=== PATIENT | male | born 1945 | race Caucasian/White ===

== ENCOUNTER 2023-12-14 06:58 | Emergency (ER) | payer OTHER, SELFPAY ==
[2023-12-14 07:08] VITALS: BP 155/99
--- NOTE | 2023-12-14 07:27 | ED.GENMED ---
History of Present Illness
General
Chief Complaint: Allergic Reaction
Source: patient
Exam Limitations: none
Time Seen by Provider: 12/14/23 07:15
Nursing documentation reviewed up to this point in time: agreed with
Travel History
Have you had any contact with someone who has COVID-19?: No
Do you have any symptoms of coronavirus? Fever > 100 degrees, chills, cough, shortness of breath, sore throat, loss of taste or smell, muscle aches, or headache?: No
History of Present Illness
History of Present Illness:
78-year-old male with past medical history of previous TBI hypertension hyperlipidemia, BPH presenting to the emergency department today with concerns of diffuse hives starting yesterday morning initially improved after receiving Claritin yesterday
morning then recurred last night and has been persisting since. Scattered throughout all extremities trunk but excluding the face. Denies any trouble swallowing or breathing. Did notice a slight heaviness to breathing last night but that is since
resolved. No abdominal pain no nausea vomiting no lightheadedness.
Past History
Past History
ED Past Medical History: GERD, HTN and Other (BPH, bowel obstruction, retinal detachment, traumatic brain injury)
ED Past Surgical History: Appendectomy and Other (Hernia repair)
Social History
Tobacco: Former smoker
Personal: Partner
Living: with family
Employment: Employed
Review of Systems
Review of Systems
Allergies reviewed?: Yes
All Other Systems: ROS reviewed and negative except as documented in HPI and ROS
Phy Exam
Physical Exam
Physical Exam:
GENERAL: Alert , in no apparent distress
EYE: pupils equal and reactive
NECK: Supple, no significant adenopathy.
ENT: o/p clr, mmm.
CARDIAC: Regular rate and rhythm .
LUNGS: Clear breath sounds bilaterally, no acute respiratory distress, no wheezes/rales/rhonchi
ABDOMEN: Soft, without focal tenderness, no r/g, no cvat
NEUROLOGICAL: Alert and oriented, no focal neuro deficits
SKIN: Scattered raised wheals throughout extremities and thorax excluding the neck and face.
MUSCULOSKELETAL: No edema, well perfused.
PSYCH: Normal and appropriate interaction.
Course
Orders/Labs/Results
Orders:
Orders
12/14/23 07:27
Dexamethasone [Decadron] 10 mg PO NOW STA
Diphenhydramine [Benadryl] 50 mg PO NOW STA
Famotidine [Pepcid] 20 mg PO NOW STA
Vital Signs
Initial and Last Documented VS:
Initial Vital Signs
Temp Pulse Resp BP Pulse Ox
98.4 F 96 16 155/99 98
12/14/23 07:08 12/14/23 07:08 12/14/23 07:08 12/14/23 07:08 12/14/23 07:08
Last Documented Vital Signs
Temp Pulse Resp BP Pulse Ox
98.4 F 96 16 155/99 98
12/14/23 07:08 12/14/23 07:08 12/14/23 07:08 12/14/23 07:08 12/14/23 07:08
MDM/Problems Addressed
MDM/Problems Addressed:
78-year-old male presenting to the emergency department today with concerns of scattered hives starting yesterday morning improving after Claritin worsening last night persisting throughout the night. Patient denies any chest pain shortness of
breath at this point normal vital signs upon arrival. Lungs are clear normal posterior. No obvious swelling to the mucous membranes. No signs of anaphylaxis. Plan for treatment with steroid and antihistamines. Patient reassessed 2 hours after
treat significant improvement in symptoms. Patient appears stable for discharge return precautions given. Patient written for an EpiPen and advised for close outpatient follow-up.
Just prior to discharge patient mentioned that he started Bactrim last week. This is very likely the culprit he was advised to discontinue this medication and follow close with the urologist about alternative measures for his chronic urinary
issues. Otherwise stable for outpatient management return precautions given.
*Critical Care Note
Total Time (30-74mins, 75-104mins- exclusive of procedures): Not Applicable
ED Attending Note
-
Portions of this chart may have been created with voice recognition software.� Occasional wrong word or��sound alike� substitutions may have occurred due to the inherent limitations of voice recognition software.
Discharge Plan
Departure
Patient Disposition: Home (Routine Discharge)
Date of Disposition: 12/14/23
Time of Disposition: 10:14
Patient with high blood pressure during this ER visit?: No
Condition: Good
Covid-19: Not Applicable
Discharge Problem:
Hives
Instructions: Hives (DC)
Prescriptions:
New
epinephrine [Auvi-Q] 0.3 mg/0.3 mL auto-injector
0.3 mg IM Q5-15M PRN (Reason: hypersensitivity reaction) Qty: 2 0RF
prednisone 20 mg tablet
40 mg PO DAILY 4 Days Qty: 8 0RF
famotidine 20 mg tablet
20 mg PO BID 4 Days Qty: 8 0RF
cetirizine [Zyrtec] 10 mg tablet
10 mg PO DAILY 4 Days Qty: 4 0RF
No Action
atorvastatin [Lipitor] 10 MG tablet
20 mg PO DAILY
esomeprazole magnesium [Nexium] 40 MG capsule,delayed release(DR/EC)
40 mg PO DAILY
hydrochlorothiazide 25 MG tablet
25 mg PO DAILY
oxybutynin chloride 10 MG tablet extended release 24hr
10 mg PO BID
diltiazem HCl 180 MG capsule,extended release 24hr
180 mg PO DAILY
famotidine [Acid-Pep] 20 MG tablet
20 mg PO HS
hydralazine 50 MG tablet
50 mg PO DAILY
mirtazapine 15 MG tablet
15 mg PO HS
coenzyme [id number] E 1 CAP capsule
1 cap PO DAILY
cholecalciferol (vitamin D3) 1,000 UNITS tablet
1,000 units PO QPM
oxycodone 5 MG tablet
5 mg PO Q4HPRN PRN (Reason: breakthrough/severe pain) Qty: 7 0RF
Referrals:
Silvino Aburto DO [Family Provider] -
Activity Restrictions/Additional Instructions:
You came to the emergency department today with concerns of allergic reaction. This is likely from the Bactrim that you are currently taking please discontinue this medication immediately and follow-up closely with your outpatient doctor in regard
to alternatives to this medication. Please otherwise take the antihistamines twice daily as well as the prednisone 40 mg once daily over the next 4 days. Please follow close with the primary care doctor for further assessment. Return to the
emergency department any worsening, new or concerning symptoms.
Interventions
Interventions:
*Risk Screen - Suicide Last Done: 12/14/23 07:39
*General Assessment Last Done: 12/14/23 07:39
*Neglect/Abuse Screening Last Done: 12/14/23 07:39
*ED COVID-19 Vaccine History Last Done: 12/14/23 07:08
ED- Cardiac Assessment Last Done: 12/14/23 07:39
ED- Pulmonary Assessment Last Done: 12/14/23 07:39
ED-Skin Assessment Last Done: 12/14/23 07:39
[2023-12-14] MEDS: BENADRYL 50 MG PO (07:34)
[2023-12-14] MEDS: PEPCID 20 MG PO (07:35)
[2023-12-14] MEDS: DECADRON 10 MG PO (07:35)
== END 2023-12-14 10:40 | disposition home or self-care (01) ==
LOC: EMR 06:58
PROVIDERS: EMERGENCY PHYSICIAN Emergency Medicine; FAMILY PHYSICIAN Family Medicine
DX: L50.0 Allergic urticaria (principal); I10 Essential (primary) hypertension; E78.5 Hyperlipidemia, unspecified; N40.0 Benign prostatic hyperplasia without lower urinary tract symptoms; Z87.891 Personal history of nicotine dependence
CPT/HCPCS: 99283

== ENCOUNTER → 2024-07-31 09:16 | Outpatient (REF) | payer OTHER, SELFPAY | LOC: RAD 09:16 | PROVIDERS: ATTENDING PHYSICIAN Physical Medicine & Rehabilitation; FAMILY PHYSICIAN Family Medicine | DX: M54.16 Radiculopathy, lumbar region (principal) | CPT/HCPCS: 72040; 72100 ==

== ENCOUNTER → 2025-02-11 09:11 | Outpatient (REF) | payer MEDICARE, SELFPAY | LOC: HWRCS 09:11 | PROVIDERS: ATTENDING PHYSICIAN Internal Medicine Cardiovascular Disease; FAMILY PHYSICIAN Family Medicine | DX: R06.09 Other forms of dyspnea (principal) | CPT/HCPCS: 93306 ==

== ENCOUNTER → 2025-02-17 07:43 | Outpatient (REF) | payer MEDICARE, SELFPAY | LOC: HWRCS 07:43 | PROVIDERS: ATTENDING PHYSICIAN Internal Medicine Cardiovascular Disease; FAMILY PHYSICIAN Family Medicine | DX: R06.09 Other forms of dyspnea (principal) | CPT/HCPCS: 78452; 93017; A9500; J2785 ==

== ENCOUNTER 2025-03-02 07:01 | Emergency (ER) | payer MEDICARE, SELFPAY ==
[2025-03-02 07:10] VITALS: BP 127/75
--- NOTE | 2025-03-02 07:36 | ED.GENMED ---
History of Present Illness
General
Chief Complaint: Bowel Problem
Source: patient and spouse
Time Seen by Provider: 03/02/25 07:14
History of Present Illness
History of Present Illness:
79-year-old male with past medical history of hypertension, hyperlipidemia, GERD, BPH, previous bowel obstruction (in his 20s) presenting to the emergency department for evaluation of constipation that has been ongoing for the last 3 weeks, patient
increased his fiber intake as well as been taking MiraLAX for the last few days, this morning woke up around 2 AM with an urge to have a bowel movement and states that a large hard stool and about 30 minutes after this has had 2-3 episodes of
diarrhea and another few episodes of vomiting. Patient states he still is having cramping sensation throughout his abdomen and intermittent nausea. He denies any rectal pain or sensation of a fecal impaction. He denies any fevers, chills, rigors,
urinary symptoms or any other concerns. No recent changes to medications. Social history otherwise noncontributory. Patient does note a surgical history of previous abdominal adhesions and previous appendectomy
Past History
Past History
ED Past Medical History: GERD, HTN and Other (BPH, bowel obstruction, retinal detachment, traumatic brain injury)
ED Past Surgical History: Appendectomy and Other (Hernia repair)
Social History
Tobacco: Former smoker
Alcohol: None
Drug: None
Personal:
Living: with family
Employment: Employed
Review of Systems
Review of Systems
All Other Systems: ROS reviewed and negative except as documented in HPI and ROS
Phy Exam
Physical Exam
Physical Exam:
GENERAL: Alert , in no apparent distress but a somewhat anxious affect
EYE: clear conjunctiva b/l
HEAD: NCAT
ENT: o/p clr, mmm.
CARDIAC: Regular rate and rhythm .
LUNGS: Clear breath sounds bilaterally, no acute respiratory distress, no wheezes/rales/rhonchi
ABDOMEN: Soft, without focal tenderness, hyperactive bowel sounds, no r/g, no cvat
NEUROLOGICAL: Alert and oriented
SKIN: Warm and dry, skin intact.
MUSCULOSKELETAL: No edema, well perfused.
PSYCH: Normal and appropriate interaction.
Scores
Heart Failure Risk
Heart Failure Risk Score: Not Applicable
Heart Score for Chest Pain Patients
STEMI patient?: Not applicable
Withdrawal Assessment of Alcohol
Withdrawal Assessment Completed?: Not applicable
Course
Orders/Labs/Results
Orders:
Orders
03/02/25 07:36
CT Abd/pelvis W Iv Cont Urgent
Comment:
Reason For Exam: constipation/diarrhea, hx bowel obstruction
03/02/25 07:39
0.9% Sodium Chloride 1000 ml [Nss] 1,000 ml IV BOLUS
03/02/25 07:43
Complete Blood Count/With Diff Urgent
Comprehensive Metabolic Panel Urgent
Lipase Urgent
Abnormal Lab Results
03/02/25
07:43
RBC 4.12 L 10^6/uL
(4.70-6.10)
MCV 97.1 H fL
(80.0-94.0)
MCH 33.3 H pg
(27.0-31.0)
Absolute Neuts (auto) 7.9 H 10^3/uL
(1.4-6.5)
Absolute Lymphs (auto) 0.5 L 10^3/uL
(1.2-3.4)
Absolute Monos (auto) 0.7 H 10^3/uL
(0.1-0.6)
Neutrophils % 84.4 H %
(42.2-75.2)
Lymphocytes % 5.2 L %
(20.5-51.1)
Creatinine 0.6 L mg/dL
(0.7-1.3)
Glucose 121 H mg/dl
(70-99)
Total Protein 6.0 L g/dl
(6.3-8.2)
03/02/25 07:43
03/02/25 07:43
Vital Signs
Initial and Last Documented VS:
Initial Vital Signs
Temp Pulse Resp BP Pulse Ox
99.5 F 90 16 127/75 94
03/02/25 07:10 03/02/25 07:10 03/02/25 07:10 03/02/25 07:10 03/02/25 07:10
Last Documented Vital Signs
Temp Pulse Resp BP Pulse Ox
99.5 F 89 16 134/86 94
03/02/25 07:10 03/02/25 11:50 03/02/25 11:50 03/02/25 11:50 03/02/25 11:50
MDM/Problems Addressed
Differential Diagnosis Includes:
Bowel obstruction, colitis, stercoral colitis, diverticulitis, medication side effects, dehydration, electrolyte derangement
MDM/Problems Addressed:
79-year-old male presenting to the emergency department for evaluation for waxing and waning constipation accompanied with diarrhea which started this morning and vomiting. Patient concern for fecal impaction however he declined rectal exam. Based
off of history I am less concern for fecal impaction given patient is able to pass a hard stool and since that time has had more liquidy stool. His abdomen is soft without any focal tenderness. Given his previous surgeries and previous obstruction
will obtain CT scan to evaluate. Patient declining anything for symptoms at this time. Labs and fluids ordered. Disposition pending
Chronic conditions affecting care: Previous abdomnial surgery
Acute Exacerbation and/or Progression of Chronic Illness: Previous abdomnial surgery
*Radiology
Radiology exam reviewed: radiology read reviewed
*Pulse Oximetry
Patient hypoxic: no
*Critical Care Note
Total Time (30-74mins, 75-104mins- exclusive of procedures): Not Applicable
Data Reviewed
Review of Other/Old Records Reveals: Labs and Radiology Studies
Patient Management
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
Escalation/DeEscalation of care consider admission/obs:
CT results discussed with general surgery due to possible ileus or early small bowel obstruction. Given patient has normoactive bowel sounds, no further vomiting and still having flatus here I am less suspicious for bowel obstruction however
general surgery to evaluate the patient to help with disposition planning.
Patient seen and evaluated by general surgery. They are okay with patient attempting p.o. trial and if tolerates can be discharged home. Clear liquid based diet for remainder of today and low residue diet tomorrow. Return precautions of any
increased abdominal pain, vomiting or fevers should return to the ER for further evaluation. Patient feels comfortable with this discharge plan was ultimately able to tolerate liquids without any difficulty and is requesting to be discharged home.
Prescription for Zofran sent to pharmacy to be used as needed.
ED Attending Note
-
Portions of this chart may have been created with voice recognition software.� Occasional wrong word or��sound alike� substitutions may have occurred due to the inherent limitations of voice recognition software.
Discharge Plan
Departure
Patient Disposition: Home (Routine Discharge)
Date of Disposition: 03/02/25
Time of Disposition: 12:02
Patient with high blood pressure during this ER visit?: No
Discharge Problem:
Enteritis
Instructions: Clear Liquid Diet
Prescriptions:
New
ondansetron 4 mg tablet,disintegrating
4 mg PO TIDPRN PRN (Reason: nausea/vomiting) Qty: 8 0RF
No Action
atorvastatin [Lipitor] 10 MG tablet
20 mg PO DAILY
esomeprazole magnesium [Nexium] 40 MG capsule,delayed release(DR/EC)
40 mg PO DAILY
hydrochlorothiazide 25 MG tablet
25 mg PO DAILY
oxybutynin chloride 10 MG tablet extended release 24hr
10 mg PO BID
diltiazem HCl 180 MG capsule,extended release 24hr
180 mg PO DAILY
famotidine [Acid-Pep] 20 MG tablet
20 mg PO HS
hydralazine 50 MG tablet
50 mg PO DAILY
mirtazapine 15 MG tablet
15 mg PO HS
coenzyme [id number] E 1 CAP capsule
1 cap PO DAILY
cholecalciferol (vitamin D3) 1,000 UNITS tablet
1,000 units PO QPM
oxycodone 5 MG tablet
5 mg PO Q4HPRN PRN (Reason: breakthrough/severe pain) Qty: 7 0RF
epinephrine [Auvi-Q] 0.3 mg/0.3 mL auto-injector
0.3 mg IM Q5-15M PRN (Reason: hypersensitivity reaction) Qty: 2 0RF
prednisone 20 mg tablet
40 mg PO DAILY 4 Days Qty: 8 0RF
famotidine 20 mg tablet
20 mg PO BID 4 Days Qty: 8 0RF
cetirizine [Zyrtec] 10 mg tablet
10 mg PO DAILY 4 Days Qty: 4 0RF
Referrals:
Silvino Aburto DO [Family Provider] -
Interventions
Interventions:
*Risk Screen - Suicide Last Done: 03/02/25 07:10
*Neglect/Abuse Screening Last Done: 03/02/25 07:10
VX-Djojjt-Hmdazcsycy Assessment Last Done: 03/02/25 07:51
Discharge Date and Time
Print Language: DIVEHI
[2025-03-02] MEDS: NSS 1000 IV (07:47)
[2025-03-02 07:57] LABS: % Basophils 0.3 % (0-2); % Eosinophils 2.3 % (0-6); % Immature Granulocytes 0.3 % (0-0.5); % Lymphocytes 5.2 % (20.5-51.1); % Monocytes 7.5 % (1.7-9.3); % Neutrophils 84.4 % (42.2-75.2); Absolute Eosinophils 0.2 10^3/uL (0-0.7); Absolute Lymphocytes 0.5 10^3/uL (1.2-3.4); Absolute Monocytes 0.7 10^3/uL (0.1-0.6); Absolute Neutrophils 7.9 10^3/uL (1.4-6.5); Hemoglobin 13.7 g/dL (13.0-18.0); Mean Corp Hgb Conc. 34.3 g/dL (33.0-37.0); Mean Corpuscular Hgb 33.3 pg (27.0-31.0); Mean Corpuscular Volume 97.1 fL (80.0-94.0); Mean Platelet Volume 10.2 fL (7.4-10.4); Nucleated Red Blood Cells % 0 % (-); Platelet Count 240 10^3/uL (130-400); Red Blood Cell Count 4.12 10^6/uL (4.70-6.10); Red Cell Dist. Width 13.4 % (11.5-14.5); White Blood Cell Count 9.4 10^3/uL (4.8-10.8)
[2025-03-02 08:13] LABS: ALT (SGPT) 16 U/L (0-50); AST (SGOT) 17 U/L (17-59); Albumin 3.8 g/dl (3.5-5.0); Alkaline Phosphatase 41 U/L (38-126); Blood Urea Nitrogen 15 mg/dl (9-20); Calcium 9.4 mg/dl (8.4-10.2); Carbon Dioxide 25 mmol/L (22-30); Chloride 107 mmol/L (98-107); Glucose 121 mg/dl (70-99); Lipase 50 U/L (23-300); Potassium 4.1 mmol/L (3.5-5.1); Sodium 138 mmol/L (135-145); eGFR > 60.00
[2025-03-02 09:01] VITALS: BP 145/75
[2025-03-02 09:04] VITALS: BMI 21.3
[2025-03-02 11:50] VITALS: BP 134/86
== END 2025-03-02 12:15 | disposition home or self-care (01) ==
LOC: EMR 07:01
PROVIDERS: Physician Assistant Medical; EMERGENCY PHYSICIAN Emergency Medicine; FAMILY PHYSICIAN Family Medicine
DX: K52.9 Noninfective gastroenteritis and colitis, unspecified (principal); I10 Essential (primary) hypertension; E78.5 Hyperlipidemia, unspecified; N40.0 Benign prostatic hyperplasia without lower urinary tract symptoms; Z90.49 Acquired absence of other specified parts of digestive tract; Z87.891 Personal history of nicotine dependence
CPT/HCPCS: 99284; 96360; 74177; 80053; 83690; 85025; Q9967

== ENCOUNTER 2025-03-02 14:57 | Emergency (ER) | payer MEDICARE, SELFPAY ==
[2025-03-02 14:59] VITALS: BP 154/78
--- NOTE | 2025-03-02 16:31 | ED.GENMED ---
History of Present Illness
General
Chief Complaint: Fever
Source: patient, records and spouse
Exam Limitations: none
Time Seen by Provider: 03/02/25 16:09
Nursing documentation reviewed up to this point in time: agreed with
History of Present Illness
History of Present Illness:
79-year-old male presents for evaluation after questionable fever. Patient was seen earlier today�had some nausea vomiting and diarrhea had a CT scan that showed enteritis and there was a question of early small bowel obstruction. Was evaluated by
surgery was felt this was more likely an ileus, patient was feeling well and ultimately was discharged. He was told to return with fever, worsening pain. He says he went home and took a nap and when he woke up he had a fever to 102 �F orally. He
did not take any medicine he says his checked his fever again and it seemed to have resolved but he was told to return for fever and so he came back to the ER. He says that he feels fine he has not had any additional nausea, vomiting. He has
no abdominal pain. No additional diarrhea. He thinks it may have been an environmental issue as he says he was sleeping under a blanket and checked his temperature shortly thereafter.
Past History
Past History
ED Past Medical History: GERD, HTN and Other (BPH, bowel obstruction, retinal detachment, traumatic brain injury)
ED Past Surgical History: Appendectomy and Other (Hernia repair)
Social History
Tobacco: Former smoker
Alcohol: None
Drug: None
Personal:
Living: with family
Employment: Employed
Review of Systems
Review of Systems
All Other Systems: ROS reviewed and negative except as documented in HPI and ROS
Constitutional: Reports fever
ABD/GI: Denies abdominal pain, nausea, vomiting or diarrhea
Phy Exam
Physical Exam
Physical Exam:
General: Well appearing and non-toxic
HEENT: protecting airway
Neck: appears supple
CV: No evidence of cyanosis
Resp: No accessory muscle use
Abd: Soft, non-distended, nontender to deep palpation
Extremities: No deformities
Neuro: Alert
Psych: Normal affect
Skin: Intact
Scores
Heart Failure Risk
Heart Failure Risk Score: Not Applicable
Heart Score for Chest Pain Patients
STEMI patient?: Not applicable
Withdrawal Assessment of Alcohol
Withdrawal Assessment Completed?: Not applicable
Course
Orders/Labs/Results
Orders:
03/02/25 16:28
03/02/25 16:28
Vital Signs
Initial and Last Documented VS:
Initial Vital Signs
Temp Pulse Resp BP Pulse Ox
37.0 C 104 20 154/78 94
03/02/25 14:59 03/02/25 14:59 03/02/25 14:59 03/02/25 14:59 03/02/25 14:59
Last Documented Vital Signs
Temp Pulse Resp BP Pulse Ox
37.0 C 104 20 154/78 94
03/02/25 14:59 03/02/25 14:59 03/02/25 14:59 03/02/25 14:59 03/02/25 14:59
MDM/Problems Addressed
Differential Diagnosis Includes:
Ileus, bowel obstruction, enteritis
MDM/Problems Addressed:
79-year-old male who was diagnosed with enteritis earlier today returns for evaluation after one-time elevated temperature. He was seen earlier and had extensive evaluation including a surgical consult and it was felt he had enteritis with ileus.
He was feeling well and was discharged with instructions to return with fever, worsening pain or vomiting. He had a fever after taking a nap that resolved without intervention shortly thereafter but came in an abundance of caution given the what he
was told earlier. He says that he feels fine and thinks he can go home. He is afebrile here. His exam is benign. At this point no indication for further emergent evaluation I think he can be discharged advised to monitor symptoms and temperature
closely and return with any issues. He did ask that I reprint his prescription for Zofran that was given earlier as he says that he had trouble filling it at [facility].
*Radiology
Radiology exam reviewed: radiology read reviewed (Reviewed earlier imaging)
*Pulse Oximetry
Patient hypoxic: no
*Critical Care Note
Total Time (30-74mins, 75-104mins- exclusive of procedures): Not Applicable
Data Reviewed
Further Testing Considered But Not Given:
Considered repeat blood work, CT
ED Attending Note
-
Portions of this chart may have been created with voice recognition software.� Occasional wrong word or��sound alike� substitutions may have occurred due to the inherent limitations of voice recognition software.
Discharge Plan
Departure
Patient Disposition: Home (Routine Discharge)
Date of Disposition: 03/02/25
Time of Disposition: 16:37
Patient with high blood pressure during this ER visit?: Yes
Discharge Problem:
Enteritis
Instructions: Low-fiber diet
Prescriptions:
New
ondansetron 4 mg tablet,disintegrating
4 mg PO TIDPRN PRN (Reason: nausea/vomiting) Qty: 20 0RF
No Action
atorvastatin [Lipitor] 10 MG tablet
20 mg PO DAILY
esomeprazole magnesium [Nexium] 40 MG capsule,delayed release(DR/EC)
40 mg PO DAILY
hydrochlorothiazide 25 MG tablet
25 mg PO DAILY
oxybutynin chloride 10 MG tablet extended release 24hr
10 mg PO BID
diltiazem HCl 180 MG capsule,extended release 24hr
180 mg PO DAILY
famotidine [Acid-Pep] 20 MG tablet
20 mg PO HS
hydralazine 50 MG tablet
50 mg PO DAILY
mirtazapine 15 MG tablet
15 mg PO HS
coenzyme [id number] E 1 CAP capsule
1 cap PO DAILY
cholecalciferol (vitamin D3) 1,000 UNITS tablet
1,000 units PO QPM
oxycodone 5 MG tablet
5 mg PO Q4HPRN PRN (Reason: breakthrough/severe pain) Qty: 7 0RF
epinephrine [Auvi-Q] 0.3 mg/0.3 mL auto-injector
0.3 mg IM Q5-15M PRN (Reason: hypersensitivity reaction) Qty: 2 0RF
prednisone 20 mg tablet
40 mg PO DAILY 4 Days Qty: 8 0RF
famotidine 20 mg tablet
20 mg PO BID 4 Days Qty: 8 0RF
cetirizine [Zyrtec] 10 mg tablet
10 mg PO DAILY 4 Days Qty: 4 0RF
ondansetron 4 mg tablet,disintegrating
4 mg PO TIDPRN PRN (Reason: nausea/vomiting) Qty: 8 0RF
Referrals:
Silvino Aburto DO [Primary Care Provider] - Follow up in 2-3 days
Activity Restrictions/Additional Instructions:
Thank you for visiting the Emergency Department at [facility].
1. Please schedule a follow up appointment as directed. Call first thing tomorrow morning to make an appointment.
2. If indicated, please take your medications as instructed and indicated on discharge paperwork.
3. If any of your symptoms do not improve, or persist, or become more severe within 6-12 hours, please return to the emergency department for further care.
4. Please return to the emergency department if you develop a headache, neck pain/stiffness, fever greater than 100.4F, chest pain, shortness of breath, persistent nausea, vomiting, slurred speech, difficulty walking, numbness/tingling, weakness,
signs of infection or any other symptoms that are worrisome to you.
Please call [phone] if you have any questions.
Interventions
Interventions:
*General Assessment Last Done: 03/02/25 14:59
Discharge Date and Time
Print Language: ICELANDIC
--- NOTE | 2025-03-02 16:35 | CON.GS ---
Consultation
-
Date/Time Consultation Performed: 03/02/25
Requesting Provider: Amie
Performing Provider: Ramone
Reason for Consultation: n/v/d
Medical History
-
Chief Complaint: n/v/d
History of Present Illness:
79M with 3 week hx of constipation. He increased his psyllium intake and this did not help. He added muselix cereal which also did not help. last night he had a large hard stool followed by copious liquid stool and concurrent vomiting. His abd
feels improved and his nausea is also improved presently. He endorses flatus. He denies f/c. He had a bowel obstruction in his 20s that required surgery but he is unclear about the details.
Past Medical History
Past Medical History: Other (GERD, HTN and Other (BPH, bowel obstruction, retinal detachment, traumatic brain injury))
Past Surgical History: Other (Appendectomy and Other (Hernia repair))
Social History
Tobacco: Former Smoker
Alcohol: None
Drug: None
Personal:
Living: With Family
Family History
Family History: Reviewed & Noncontributory
Allergies / Home Medications
Allergy/AdvReac Type Severity Reaction Status Date / Time
Sulfa (Sulfonamide Allergy Intermediate Hives Verified 03/02/25 14:59
Antibiotics)
alfuzosin Allergy Angioedema Verified 03/02/25 14:59
atenolol Allergy Unknown Verified 03/02/25 14:59
lisinopril Allergy angioedema Verified 03/02/25 14:59
spironolactone Allergy Gyncomastia Verified 03/02/25 14:59
�Medication �Instructions �Recorded �Confirmed �Type
atorvastatin 10 mg tablet (Lipitor) 20 mg PO DAILY 06/01/09 10/09/20 History
esomeprazole magnesium 40 mg 40 mg PO DAILY 06/01/09 10/09/20 History
capsule,delayed release (Nexium)
hydrochlorothiazide 25 mg tablet 25 mg PO DAILY 06/23/13 10/09/20 History
cholecalciferol (vitamin D3) 25 1,000 units PO QPM 10/06/20 10/09/20 History
mcg (1,000 unit) tablet
coenzyme [id number] E 100 mg-100 1 cap PO DAILY 10/06/20 10/09/20 History
unit capsule
diltiazem HCl 180 mg 180 mg PO DAILY 10/06/20 10/09/20 History
capsule,extended release 24 hr
famotidine 20 mg tablet (Acid-Pep) 20 mg PO HS 10/06/20 10/09/20 History
hydralazine 50 mg tablet 50 mg PO DAILY 10/06/20 10/09/20 History
mirtazapine 15 mg tablet 15 mg PO HS 10/06/20 10/09/20 History
oxybutynin chloride 10 mg 10 mg PO BID 10/06/20 10/09/20 History
tablet,extended release 24 hr
oxycodone 5 mg tablet 5 mg PO Q4HPRN PRN 10/09/20 Rx
breakthrough/severe pain #7 tabs
cetirizine 10 mg tablet (Zyrtec) 10 mg PO DAILY 4 days #4 tabs 12/14/23 Rx
epinephrine 0.3 mg/0.3 mL 0.3 mg (0.3 mL) IM Q5-15M PRN 12/14/23 Rx
injection, auto-injector (Auvi-Q) hypersensitivity reaction #2 ea
famotidine 20 mg tablet 20 mg PO BID 4 days #8 tabs 12/14/23 Rx
prednisone 20 mg tablet 40 mg (2 x 20 mg) PO DAILY 4 days 12/14/23 Rx
#8 tabs
ondansetron 4 mg disintegrating 4 mg PO TIDPRN PRN nausea/vomiting 03/02/25 Rx
tablet #8 tabs
Review of Systems
-
A 10 point review of systems was completed, and was negative except as per HPI.
Physical Exam
Vital Signs
Temp Pulse Resp BP Pulse Ox
98.6 F 104 20 154/78 94
03/02/25 14:59 03/02/25 14:59 03/02/25 14:59 03/02/25 14:59 03/02/25 14:59
Physical Exam
General: Well Developed, Well Nourished and No Apparent Distress
GI: Soft, Non Tender and Distended (mild soft distention)
Skin: Warm and Dry
Neuro: AO x 3
Psych: Calm
Data Reviewed
-
CT Scan: Image Personally Visualized and interpreted, Report Reviewed by me, Discussed with Physician, Discussed with Patient and Discussed with Family
Labs: Labs Reviewed by me, Discussed with Physician, Discussed with Patient and Discussed with Family
Assessment / Plan
-
79M with enteritis vs pSBO
Clinically improved
Exam benign
AFVSS
No leukocytosis
CT with mildly dilated loops of small bowel, with some wall thickening/hyperenhancement c/w enteritis; possible transition point noted, difficult to discern without PO contrast; cecum appears full of fluid and similarly hyperenhanced
Plan:
Reasonable for PO challenge and DC home considering clinical improvement, normal labs and vitals
Discussed what to watch for, and to return promptly if fever, persistent vomiting, new abd pain
Advised liquid diet for today and tomorrow with gradual return to normal food
D/w pt and
[2025-03-02 16:52] VITALS: BP 145/81; BMI 25.1
== END 2025-03-02 16:56 | disposition home or self-care (01) ==
LOC: EMR 14:57
PROVIDERS: EMERGENCY PHYSICIAN Emergency Medicine; OTHER PHYSICIAN Surgery; PRIMARYCARE PHYSICIAN Family Medicine
DX: K52.9 Noninfective gastroenteritis and colitis, unspecified (principal); I10 Essential (primary) hypertension; N40.0 Benign prostatic hyperplasia without lower urinary tract symptoms; Z87.891 Personal history of nicotine dependence; Z90.49 Acquired absence of other specified parts of digestive tract
CPT/HCPCS: 99283

== ENCOUNTER → 2025-03-15 15:01 | Outpatient (REF) | payer MEDICARE, SELFPAY | LOC: HWRAD 15:01 | PROVIDERS: ATTENDING PHYSICIAN Family Medicine | DX: K59.00 Constipation, unspecified (principal) | CPT/HCPCS: 74022 ==

== ENCOUNTER 2025-03-31 06:27 | Day surgery (SDC) | payer MEDICARE, SELFPAY | END 2025-03-31 10:44 | disposition home or self-care (01) | LOC: GI 06:27 | PROVIDERS: ATTENDING PHYSICIAN Specialist; FAMILY PHYSICIAN Family Medicine | DX: Z12.11 Encounter for screening for malignant neoplasm of colon (principal); K64.8 Other hemorrhoids; K57.30 Diverticulosis of large intestine without perforation or abscess without bleeding; Z86.0101 Personal history of adenomatous and serrated colon polyps | CPT/HCPCS: G0105 ==

== ENCOUNTER → 2025-06-10 10:04 | Outpatient (REF) | payer MEDICARE, SELFPAY | LOC: MRI 10:04 | PROVIDERS: ATTENDING PHYSICIAN Specialist; FAMILY PHYSICIAN Family Medicine | DX: R93.89 Abnormal findings on diagnostic imaging of other specified body structures (principal) | CPT/HCPCS: 72197; 74183; A9575 ==

== ENCOUNTER → 2025-06-22 09:35 | Outpatient (REF) | payer MEDICARE, SELFPAY | LOC: REG 09:35 | PROVIDERS: ATTENDING PHYSICIAN Specialist | DX: R93.5 Abnormal findings on diagnostic imaging of other abdominal regions, including retroperitoneum (principal); R63.4 Abnormal weight loss | CPT/HCPCS: 36415; 82784; 83516; 86231 ==

== ENCOUNTER → 2025-07-04 09:07 | Outpatient (REF) | payer MEDICARE, SELFPAY | LOC: WDC 09:07 | PROVIDERS: ATTENDING PHYSICIAN Family Medicine | DX: N63.20 Unspecified lump in the left breast, unspecified quadrant (principal); N63.42 Unspecified lump in left breast, subareolar | CPT/HCPCS: 76642; 77062; 77066 ==